=== PATIENT | female | born 1940 | race Caucasian/White ===

== ENCOUNTER → 2017-12-27 | Outpatient (CLI) | payer MEDICARE, BC ==
[~2017-12-27] MED LIST: ASPIR-LOW81 MG PO; ASPIR-LOX325 MG PO; CALCIUM CARBON500 M1 PO; EFFER-K10 MEQ PO; EFFEXOR XR75 MG/CAP PO; EPA/GLA1 SGL; HCTZ 25MG TAB25 MG PO; HYDROCHLOR50 MG PO; K-DUR 10 MEQ T10 MEQ; KLOR-CON 1010 MEQ PO; KLOR-CON M2020 MEQ PO; LIPITOR 10MG10 MG PO; LOPRESSOR 550 MG/TAB PO; LORTAB 5/500 501 TAB PO; METOPROLOL; NORCO 325 MG-51 TAB PO; PHENERGAN 25 TA25 MG PO; PRAVACHOL 20MG20 MG PO; PRESERVISION1 SGL; PRESERVISION1 SGL PO; PRINVIL PO; SYNTHROID 0.0.025 MG PO; megared
== END ==
LOC: COL.RAD 07:57
DX: K44.9 Diaphragmatic hernia without obstruction or gangrene (principal); K21.9 Gastro-esophageal reflux disease without esophagitis

== ENCOUNTER → 2018-06-25 | Outpatient (CLI) | payer MEDICARE, BC | LOC: MC.RAD 14:26 | DX: Z12.31 Encounter for screening mammogram for malignant neoplasm of breast (principal) ==

== ENCOUNTER → 2019-09-25 | Outpatient (CLI) | payer MEDICARE, BC | LOC: MC.RAD 16:41 | DX: Z12.31 Encounter for screening mammogram for malignant neoplasm of breast (principal) ==

== ENCOUNTER 2024-01-17 15:08 | Outpatient (RCR) | payer MEDICARE, BC | END 2024-01-18 | disposition home or self-care (01) | LOC: WSPT | DX: R26.89 Other abnormalities of gait and mobility (principal) ==

== ENCOUNTER 2024-02-14 14:15 | Outpatient (RCR) | payer MEDICARE, BC | END 2024-02-18 | disposition home or self-care (01) | LOC: WSPT | DX: R26.89 Other abnormalities of gait and mobility (principal) ==

== ENCOUNTER 2024-03-27 15:00 | Outpatient (RCR) | payer MEDICARE, BC | END 2024-04-19 | LOC: WSPT | DX: R26.89 Other abnormalities of gait and mobility (principal) ==

== ENCOUNTER → 2024-09-20 | Outpatient (CLI) | payer MEDICARE, BC | LOC: COL.RAD 09:43 | DX: G31.9 Degenerative disease of nervous system, unspecified (principal); R26.89 Other abnormalities of gait and mobility; R19.5 Other fecal abnormalities ==